=== PATIENT | male | born 1965 | race Caucasian/White ===

== ENCOUNTER 2017-08-15 06:59 | Emergency (ER) | payer OTHER, BC ==
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
[2017-08-15] MEDS ORDERED: Diphtheria,Pertussis(Acell),Tetanus Vaccine 0.5 ML SDV inactive IM ONE (08:35)
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
== END 2017-08-15 08:53 | disposition home or self-care (01) ==
LOC: LB.ED 06:59
DX: S00.81XA Abrasion of other part of head, initial encounter (principal); V89.2XXA Person injured in unspecified motor-vehicle accident, traffic, initial encounter
CPT/HCPCS: 70450; 72125; 90471; 99283-25